=== PATIENT | male | born 1970 | race Caucasian/White ===

== ENCOUNTER 2020-03-05 09:29 | Emergency (ER) | payer OTHER ==
--- NOTE | 2020-03-05 09:56 | ED Physician Documentation ---
PD HPI BACK PAIN - Stated complaint Stated Complaint: BACK PX - Chief complaint Chief Complaint: Back Pain - History obtained from History obtained from: Patient - History of Present Illness Timing - onset: How many days ago (several) Timing - duration: Days Timing - details: Gradual onset Location: Lower, Right, Left Quality: Pain, Spasm, Aching Associated symptoms: No: Fever, Weakness, Numbness, Incontinent of urine Improves with: Rest, Meds (some improved with Naproxen and Tylenol, but still stiff/spasms.) Worsened by: Movement, Twisting Contributing factors: Twisting, Other (from out of town and staying in motel the past 10 days.). No: Trauma (onset gradual and worse each day, with spasms. Did go fishing yesterday and slipped, falling onto buttocks, but did not really worsen the pain that much.) Similar symptoms before: Diagnosis (low back pain/sciatic years ago. No regular back pain issues ("sore if I work too much").) Recently seen: Not recently seen Review of Systems Constitutional: denies: Fever, Chills Nose: denies: Rhinorrhea / runny nose, Congestion Throat: denies: Sore throat Respiratory: denies: Cough PD PAST MEDICAL HISTORY - Past Medical History Past Medical History: Yes Cardiovascular: Hypertension GI: None : None Psych: None Musculoskeletal: None - Past Surgical History Past Surgical History: Yes - Present Medications Home Medications: Ambulatory Orders Medication Instructions Recorded Confirmed HYDROcod/ACETAM 5/325 [Willcox 5/325] 1 ea PO Q6H PRN #20 tablet 03/05/20 tiZANidine [Zanaflex] 4 mg PO Q8H PRN #25 tablet 03/05/20 - Allergies Allergies/Adverse Reactions: Allergies Allergy/AdvReac Type Severity Reaction Status Date / Time No Known Drug Allergies Allergy Verified 03/05/20 09:43 - Living Situation Living Situation: reports: With spouse/s.o. 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 Staying in [facility] the past 10 days. ) - Social History Does the pt smoke?: No Smoking Status: Never smoker Does the pt drink ETOH?: No Does the pt have substance abuse?: No - Immunizations Immunizations are current?: Yes PD ED PE NORMAL - Vitals Vital signs reviewed: Yes - General General: Alert and oriented X 3, No acute distress (guarding ROM for the low back though.), Well developed/nourished - Back Back: No spinal TTP (tender to lateral low back right more than left, in muscle areas. ) - Derm Derm: Normal color, Warm and dry, No rash - Extremities Extremities: No tenderness to palpate, No edema, No calf tenderness / cord - Neuro Neuro: Alert and oriented X 3, No motor deficit, No sensory deficit, Normal spee ch Results - Vitals Vitals: Vital Signs - 24 hr 03/05/20 09:41 Temperature 37.3 C Heart Rate 62 Respiratory 18 Rate Blood Pressure 142/87 H O2 Saturation 99 Oxygen O2 Source Room air PD MEDICAL DECISION MAKING - ED course Complexity details: considered differential (no red flags with nontraumatic low back pain, normal neuro. ), d/w patient Departure - Departure Disposition: Home, Self Care Clinical Impression: Acute low back pain Qualifiers: Back pain laterality: bilateral Sciatica presence: with sciatica Sciatica laterality: sciatica laterality unspecified Qualified Code(s): M54.40 - Lumbago with sciatica, unspecified side Condition: Stable Record reviewed to determine appropriate education?: Yes Instructions: ED Spasm Back No Trauma, ED Sciatica Prescriptions: HYDROcod/ACETAM 5/325 [Willcox 5/325] 1 ea PO Q6H PRN #20 tablet PRN Reason: Pain tiZANidine [Zanaflex] 4 mg PO Q8H PRN #25 tablet PRN Reason: Spasms Comments: Heat and gentle stretching for the low back. Light activity is okay. Mechanical treatments such as chiropractic and massage are good for these as well. Continue with the naproxen 2 tablets 3 times a day. To that add tizanidine muscle relaxant to reduce stiffness and spasms. You can add Tylenol and/or hydrocodone as needed for worse pain. Be aware the hydrocodone/acetaminophen does have 325 mg of Tylenol in it so to generally reduce the amount of supplemental Tylenol to just 1 extra strength 4 times a day.
[2020-03-05] MEDS ORDERED: HYDROcod/ACETAM 5/325 MG TABLET PO STA (10:08)
[2020-03-05] MEDS ORDERED: methocarbamoL 500 MG TABLET PO STA (10:08)
[2020-03-05] MEDS ORDERED: NAPROXEN 250 MG TABLET PO STA (10:09)
[2020-03-05 10:50] VITALS: BP 142/84
== END 2020-03-05 10:50 | disposition home or self-care (01) ==
LOC: ED 09:29
DX: M54.40 Lumbago with sciatica, unspecified side (principal); I10 Essential (primary) hypertension
CPT/HCPCS: 99282; 99284; A9270